=== PATIENT | female | born 1960 | race African-American/Black ===

== ENCOUNTER 2023-10-16 15:31 | Emergency (ER) | payer SELFPAY ==
[~2023-10-16] VITALS: Ht 180.3 cm; Wt 99.8 kg
[2023-10-16] MEDS: KETOROLAC TROMETHAMINE 30 MG INJ IM ONE (16:45)
[2023-10-16] MEDS ORDERED: NAPR-1192 PO (17:46)
[2023-10-16] MEDS ORDERED: KETOROLAC TROMETHAMINE 30 MG INJ ONE (17:48)
[2023-10-16 17:58] VITALS: BP 130/68; TEMP 97.5; O2SAT 98
== END 2023-10-16 17:59 | disposition home or self-care (01) ==
LOC: ER 15:37
DX: M54.50 Low back pain, unspecified (principal); Z79.899 Other long term (current) drug therapy; Z88.0 Allergy status to penicillin
CPT/HCPCS: 99283; 72100; 96372; J1885; A4606; A4663